=== PATIENT | female | born 1965 | race Caucasian/White ===

== ENCOUNTER 2018-01-03 04:58 | Day surgery (SDC) | payer BC ==
[2018-01-02 13:09] VITALS: BMI 24.7
[2018-01-03] MEDS ORDERED: SUCCINYLCHOLINE CHLORIDE 200 MG/10 ML VIAL ONE (14:19)
[2018-01-03] MEDS ORDERED: MIDAZOLAM HCL 2 MG/2 ML SINGLE DOSE VIAL ONE (14:19)
[2018-01-03] MEDS ORDERED: PROPOFOL 20 ML ONE ×2 (14:19)
[2018-01-03] MEDS ORDERED: GENTAMICIN SO4 80 MG/2 ML VIAL ONE (14:20)
[2018-01-03] MEDS ORDERED: GENTAMICIN SO4 80 MG/2 ML VIAL IVPB ONE (14:37)
[2018-01-03] MEDS ORDERED: DEXAMETHASONE SOD PHOSPHATE 4 MG/1 ML VIAL ONE (14:48)
[2018-01-03] MEDS ORDERED: KETOROLAC TROMETHAMINE 30 MG/1 ML VIAL ONE (14:48)
[2018-01-03] MEDS ORDERED: oxyCODONE HCL 5 MG TABLET PO PRN (15:14)
[2018-01-03] MEDS ORDERED: ONDANSETRON 4 MG/2 ML VIAL IVPUSH PRN (15:14)
[2018-01-03] MEDS ORDERED: PROMETHAZINE HCL 25 MG/1 ML VIAL IVPUSH PRN (15:14)
[2018-01-03] MEDS ORDERED: LACTATED RINGERS SOLUTION 1,000 ML IV SCH (15:15)
[2018-01-03] MEDS ORDERED: IBUPROFEN 400 MG TABLET (FP) PO PRN (15:16)
[2018-01-03] MEDS ORDERED: ACETAMINOPHEN 325 MG TABLET (FP) PO PRN (15:16)
[2018-01-03] MEDS ORDERED: PROMETHAZINE HCL 25 MG/1 ML VIAL IVPB PRN (15:20)
[2018-01-03 15:51] VITALS: TEMP 97.8
--- NOTE | 2018-01-03 16:23 | OP ---
DATE OF OPERATION: 01/03/2018 PREOPERATIVE DIAGNOSIS: Postmenopausal bleeding. POSTOPERATIVE DIAGNOSIS: Postmenopausal bleeding. SURGEON: Graciela Garcias MD ANESTHESIA: General by . DESCRIPTION OF PROCEDURE: Once the patient was prepped and draped under general anesthesia in the lithotomy position, examination under anesthesia revealed vagina bleeding, cervix closed, corpus top normal, a small fibroid, adnexa negative. During the procedure, a weighted speculum applied to the vagina. Cervix grasped with tenaculum. Cervical canal was dilated up to a number-31 Hegar and uterine cavity was about 8 cm. At this time, hysteroscopy was done with the help of saline media. Entire endocervix and endometrial cavity were evaluated. There was a lot of hyperplasia. I did not see any polyp or any tumor, but there was severe dysplasia. After hysteroscopy, then dilatation and curettage was done. First, endocervical curetting was done and a small amount of tissue was removed and then endometrial curetting was done and a moderate amount of tissue was removed. Estimated blood loss was about 20 mL. Patient tolerated the procedure. Was sent to recovery room in good condition. Graciela GARCIAS M.D. [id number]
[2018-01-03 17:29] VITALS: BP 106/55; PULSE 58
--- NOTE | 2018-01-05 18:46 | PATH ---
Surgical Pathology Report Patient Name: DAVE GUILLEN [facility]. Rec. #: [id number] /Age/Gender: 1965 (Age: 52) / F Account: [id number] Location: [facility] SURGICAL Taken: 01/03/2018 Received: 01/04/2018 Reported: 01/05/2018 Physicians: Kimberlyn Franks M.D. Specimen(s) Received A: ENDOCERVICAL CURETTINGS B: ENDOMETRIAL CURETTINGS Clinical History Postmenopausal bleeding Final Diagnosis A. ENDOCERVICAL CURETTINGS: FRAGMENTS OF UNREMARKABLE ENDOCERVICAL GLANDS. 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 B. ENDOMETRIAL CURETTINGS: FRAGMENT OF ENDOMETRIAL POLYP. 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 Electronically Signed Jamal Juarez M.D. Gross Description A. Received in formalin, labeled "endocervical curettings" are multiple of brown, irregular portions of soft tissue measuring 1.5 x 1.5 x 0.2cm. in aggregate. The specimens are submitted in toto in one cassette. B. Received in formalin, labeled "endometrial curettings" are multiple dark brown portions of soft tissue measuring 3 x 3 x 0.3 cm in aggregate. The specimens are submitted in toto in 2 cassettes. __ KWUma/01/04/2018 bong/01/04/2018
== END 2018-01-03 17:31 | disposition home or self-care (01) ==
LOC: JASU-SURG 04:58
PROVIDERS: ATTEND Obstetrics & Gynecology
PROC: 0UDB7ZX Extraction of Endometrium, Via Natural or Artificial Opening, Diagnostic (ICD-10-PCS; principal; 2018-01-03 13:00)
PROC: 0UJD8ZZ Inspection of Uterus and Cervix, Via Natural or Artificial Opening Endoscopic (ICD-10-PCS; 2018-01-03 13:00)
DX: N95.0 Postmenopausal bleeding (principal); D25.9 Leiomyoma of uterus, unspecified; N85.00 Endometrial hyperplasia, unspecified
CPT/HCPCS: 86850; 86900; 86901; 88305-TC; 94760